=== PATIENT | female | born 1985 | race Two or more races ===

== ENCOUNTER → 2017-06-15 | Outpatient (CLI) | payer OTHER ==
--- NOTE | 2017-06-15 12:32 | MR ---
EXAMINATION TYPE: MR shoulder RT wo con DATE OF EXAM: 06/15/2017 COMPARISON: Outside x-ray dated 02/03/2017 HISTORY: Pain TECHNIQUE: Multiplanar, multisequence imaging of the right shoulder shoulder is performed without con trast. FINDINGS: Rotator Cuff: Intrasubstance signal within the distal margin of the infraspinatus and supraspinatus t endons compatible with tendinosis. No through thickness tear or retraction. Subscapularis tendon intact. There is a small 5 mm cystic area adjacent to the tendon which may repre sent tiny small amount of fluid within the bursa. Acromioclavicular Joint: There appears to be thickening of the capsule of the AC joint with adjacent marrow edema and soft tissue edema extending to the subacromial region. AC joint sprain grade 1 and s uspected. Involving the AC joint which does result in impingement of the supraspinatus tendon and mus janelle. Glenohumeral Joint: Joint spaces preserved. There is a trace amount fluid along the inferior margin t he joint space. Glenohumeral ligaments intact. Labrum: Intrasubstance signal the anterior superior labrum Biceps Tendon: The long head of biceps is in normal location within bicipital groove. Bone marrow signal: No focal abnormal marrow signal is appreciated. IMPRESSION: 1. Thickening and fluid related to the AC joint extending into the soft tissues with impingement of t he supraspinatus muscle and tendon. Suspect active inflammation within the AC joint correlate for gra de 1 sprain. 2. Tendinosis of the infraspinatus and supraspinatus tendons with no definite tear. 3. Small amount of fluid within the glenohumeral joint. 4. Anterior superior labral tear.
== END | disposition home or self-care (01) ==
LOC: RADMRIMAIN 11:41
PROVIDERS: ATTEND Orthopaedic Surgery
DX: S43.431A Superior glenoid labrum lesion of right shoulder, initial encounter (principal); M75.81 Other shoulder lesions, right shoulder

== ENCOUNTER → 2017-07-02 | Outpatient (CLI) | payer OTHER ==
[2017-07-02 08:56] LABS: Basophils % (A) 0 %; Eosinophils # (A) 0.1 k/uL (0-0.7); Eosinophils % (A) 1 %; HCT 42.9 % (34.0-46.0); HGB 14.7 gm/dL (11.4-16.0); Lymphocytes # (A) 1.5 k/uL (1.0-4.8); Lymphocytes % (A) 23 %; MCH 30.5 pg (25.0-35.0); MCHC 34.3 g/dL (31.0-37.0); MCV 88.9 fL (80.0-100.0); Mean Platelet Volume 7.3; Monocytes # (A) 0.6 k/uL (0-1.0); Monocytes % (A) 9 %; Neutrophils # (A) 4.3 k/uL (1.3-7.7); Neutrophils % (A) 64 %; Platelet Count 226 k/uL (150-450); RBC 4.83 m/uL (3.80-5.40); RDW 12.1 % (11.5-15.5); WBC 6.7 k/uL (3.8-10.6)
[2017-07-02 09:10] LABS: Potassium 4.7 mmol/L (3.5-5.1)
== END | disposition home or self-care (01) ==
LOC: LABPAT 08:13
PROVIDERS: ATTEND Orthopaedic Surgery
DX: Z01.818 Encounter for other preprocedural examination (principal); M75.41 Impingement syndrome of right shoulder
CPT/HCPCS: 36415; 80051; 81025; 85025

== ENCOUNTER 2017-07-15 08:40 | Day surgery (SDC) | payer OTHER ==
[2017-07-13 11:07] VITALS: BMI 31.4
--- NOTE | 2017-07-14 14:56 | HP ---
HISTORY AND PHYSICAL Mirta Wright is a 31-year-old patient seen with progressive right shoulder pain. Treatment options were discussed. She elected to proceed with right shoulder arthroscopy. Consent was obtained. PAST MEDICAL HISTORY: Noncontributory. PAST SURGICAL HISTORY: Noncontributory. DAILY MEDICATIONS: Ibuprofen. ALLERGIES: None. SOCIAL HISTORY: Patient denies tobacco use. PHYSICAL EXAMINATION: Evaluation right shoulder: Flexion 170 degrees, abduction 160 degrees, external rotation is 50 degrees with some weakness, tenderness along the anterior lateral acromion and rotator cuff insertion site. Impingement sign is positive at 120 degrees. Distal neurovascular exam is intact. RADIOGRAPHS: Radiographs were obtained of right shoulder, revealing a lateral downsloping anterior acromion. An MRI of the right shoulder revealed a labral tear. IMPRESSION: Right shoulder impingement with labral tear. PLAN: Right shoulder arthroscopy with subacromial decompression, probable arthroscopic labral repair and debridement. MMODL / IJN: [id number] /
[~2017-07-15 08:40] MED LIST: DEXAMETHASONE SOD PHOSPHATE 10 MG/ML 1 ML VIAL IV ONE; HYDROmorphone 0.5 MG/0.5 ML SYRINGE IVP PRN; LACTATED RINGERS 1,000 ML IV SCH; LIDOCAINE 1% 20 ML VIAL (10MG/ML) FOR IV START INTRADERMA PRN; MIDAZOLAM 2 MG/2 ML VIAL IV PRN; MORPHINE SULFATE 2 MG/ML SYRINGE IV PRN; ONDANSETRON 4 MG/2 ML VIAL IVP ONE; SCOPOLAMINE 1.5MG/72HR PATCH TRANSDERM ONE; fentaNYL (PF) 50 MCG/ML 2 ML AMP IV PRN
[2017-07-15] MEDS ORDERED: MIDAZOLAM 2 MG/2 ML VIAL ONE (10:52)
[2017-07-15] MEDS ORDERED: PROPOFOL 10 MG/ML 20 ML VIAL IV ONE (10:52)
[2017-07-15] MEDS ORDERED: LIDOCAINE 2%-EPI 1:100,000 20 ML VIAL ONE (10:52)
[2017-07-15] MEDS ORDERED: fentaNYL (PF) 50 MCG/ML 2 ML AMP ONE (10:52)
[2017-07-15] MEDS ORDERED: ROPIVACAINE 5 MG/ML 30 ML VIAL ONE (10:52)
[2017-07-15] MEDS ORDERED: LIDOCAINE 1% INJ 10MG/ML (20 ML MDV) ONE (10:52)
[2017-07-15] MEDS ORDERED: SUCCINYLCHOLINE CHLORIDE 100 MG/5 ML SYR IV ONE (10:52)
[2017-07-15] MEDS ORDERED: ROCURONIUM BROMIDE 10 MG/ML 10 ML VIAL IV ONE (10:52)
[2017-07-15] MEDS: ceFAZolin IN SWFI 2 GM/20 ML SYRINGE IVP ONE ×2 (10:55→11:06)
[2017-07-15] MEDS ORDERED: LACTATED RINGERS 1,000 ML IV ONE (11:28)
[2017-07-15 12:36] VITALS: TEMP 97.6
--- NOTE | 2017-07-15 12:37 | P.OP ---
Date of Procedure: 07/15/17 Preoperative Diagnosis: Right shoulder impingement with labral tear Postoperative Diagnosis: 1. Right shoulder rotator cuff tear 2. Right shoulder impingement 3. Right shoulder acromioclavicular joint osteoarthritis 4. Right shoulder superficial labral tear 5. Right shoulder partial long head biceps tendon tear Procedure(s) Performed: 1. Right shoulder arthroscopic rotator cuff repair 2. Right shoulder arthroscopic subacromial decompression 3. Right shoulder arthroscopic Carlos procedure 4. Right shoulder arthroscopic debridement labral tear 5. Right shoulder arthroscopic biceps tenotomy Anesthesia: ALEK Surgeon: Hector Mathews Lidar Scientist #1: Harry Hutton Estimated Blood Loss (ml): 11 Pathology: none sent Condition: stable Disposition: PACU Indications for Procedure: 31-year-old patient seen with progressive right shoulder pain. After having treatment options discussed, she elected to proceed with arthroscopy. Operative Findings: see description of procedure Description of Procedure: Patient underwent a shoulder block by department of anesthesia. The patient was then taken to the operative suite. The patient underwent a general anesthetic by the department of anesthesia. The patient was placed into a lateral position and secured. There was appropriate padding of the bony prominence. Right shoulder was then prepped and draped in normal sterile orthopedic fashion. We placed the extremity in 10 pounds of longitudinal traction. A posterior incision was now made for a posterior working portal site. The trocar and cannula were inserted into the glenohumeral joint. Arthroscopy was initiated. Spinal needle was now inserted anteriorly, to ascertain the anterior working portal site. An incision was now made in that area, a trocar was inserted followed by a probe. Was superficial tearing of the superior labrum. Partial tear with hyperemia long head biceps tendon. The anterior labrum was thoroughly probed and found to be intact. The inferior labrum was intact. The posterior labrum was intact. The joint appeared stable. There was no chondromalacia. There were no loose bodies. I debrided the superficial labral tear down to stable tissue. I performed an arthroscopic biceps tenotomy. The residual labrum was stable. Instruments now removed from glenohumeral joint. Utilizing the posterior working portal site, the trocar and cannula were inserted into the subacromial space. Arthroscopy initiated. I made an incision 2 fingerbreadths lateral to the acromion. I introduced my trocar followed by my [employer] ablator. I now began ablating thick subacromial bursal tissue, which exposed the undersurface of the anterior acromion. This was diminished subacromial space. There was a very prominent anterior acromion. A motorized bur was introduced and a subacromial decompression was performed. I also excised some osteophytes off the inferior aspect of the distal clavicle. The AC joint was visualized and noted to be fairly arthritic. Our motorized bur was introduced in the anterior portal site and a Carlos procedure was performed without difficulty, decompressing the AC joint nicely. I turned my attention to the rotator cuff. There appeared be some superficial tearing along the mid area supraspinatus. The area was probed and there was a through and through perforation noted. I debrided the margins getting down to stable tendon tissue. I passed 2 sutures through good bites of rotator cuff tendon. I repaired this intrasubstance tear with 2 simple interrupted sutures which repaired the tendon very nicely. The suture limbs were clipped. The repair was stable. I injected 1 mL of UCT intra-articular. Instruments were now removed from the portal sites. All portal sites were approximated with nylon suture. Sterile dressings were applied followed by a shoulder immobilizer. Mina HERNANDES assisted with the procedure. The patient was awakened, transferred to a bed, and taken to recovery in stable condition.
[2017-07-15 14:01] VITALS: BP 128/87; PULSE 88; RESP 16
--- NOTE | 2017-07-15 18:33 | P.ONQ ---
Anesthesiology Proc Note - PNB - Peripheral Nerve Block Performed Right Interscalene Single Time Out Performed: Yes Procedure Start Time: : Procedure Stop Time: : Indication: Acute Post-Operative Pain, Requested by physician Sedation Type: Awake Preparation: Sterile Prep Position: Supine Needle Size: 50mm (2") Needle Gauge: 21 Technique: Ultrasound Injectate: 0.5% Ropivacaine (see comment for volume) (ropi .5% 30cc) Blood Aspirated: No Pain Paresthesia on Injection Noted: No Resistance on Injection: Normal Events: Uneventful and Well Tolerated
== END 2017-07-15 14:16 | disposition home or self-care (01) ==
LOC: OR 08:40
PROVIDERS: ATTEND Orthopaedic Surgery
DX: M75.101 Unspecified rotator cuff tear or rupture of right shoulder, not specified as traumatic (principal); M75.41 Impingement syndrome of right shoulder; M19.011 Primary osteoarthritis, right shoulder; S46.111A Strain of muscle, fascia and tendon of long head of biceps, right arm, initial encounter; S43.491A Other sprain of right shoulder joint, initial encounter; M25.711 Osteophyte, right shoulder; Z79.1 Long term (current) use of non-steroidal anti-inflammatories (NSAID)
CPT/HCPCS: 29827; 29824; 29822; 29826; 64415; 81025; J2250; J1100; J2405; J2001; J3010; J2795; J0330; J2704; J0690